=== PATIENT | female | born 2000 ===

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

== ENCOUNTER 2018-09-20 10:36 | Emergency (ER) | payer SELFPAY ==
[2018-09-20 10:47] VITALS: BP 118/66; PULSE 87; RESP 16; TEMP 97.2; O2SAT 97; BMI 19.6
--- NOTE | 2018-09-20 11:43 | ED PDOC ---
HPI: Skin/Bite Injury Time Seen by Provider: 09/20/18 11:01 Chief Complaint (Provider): Rash History Per: Patient History/Exam Limitations: no limitations Onset/Duration Of Symptoms: Other (one month and a half) Additional Complaint(s): 18 years old female with no significant PMHx presents to ER for evaluation of generalized itchiness and rash onset one month and a half ago. Patient reports boyfriend has same symptoms. She denies fever, pain, shortness of breath and throat swelling. PMD: None provided Past Medical History Reviewed: Historical Data, Nursing Documentation, Vital Signs Vital Signs: Last Vital Signs Temp 97.2 F L 09/20/18 10:46 Pulse 87 09/20/18 10:46 Resp 16 09/20/18 10:46 BP 118/66 09/20/18 10:46 Pulse Ox 97 09/20/18 10:46 - Medical History PMH: Depression Denies: Diabetes, Hepatitis, HIV, HTN, Chronic Kidney Disease, Seizures, Sex ually Transmitted Disease - Surgical History Surgical History: No Surg Hx - Family History Family History: States: Unknown Family Hx - Social History Current smoker - smoking cessation education provided: No Alcohol: None Drugs: Denies - Home Medications Home Medications: Ambulatory Orders Medication Instructions Recorded Permethrin 5% [Permethrin 5% Cream] 1 / TP DAILY #1 tube 09/20/18 - Allergies Allergies/Adverse Reactions: Allergies Allergy/AdvReac Type Severity Reaction Status Date / Time apple Allergy ITCHING Verified 03/29/16 19:45 pear Allergy ITCHING Verified 03/29/16 19:45 Review of Systems ROS Statement: Except As Marked, All Systems Reviewed And Found Negative Constitutional: Negative for: Fever ENT: Negative for: Throat Swelling Respiratory: Negative for: Shortness of Breath Skin: Positive for: Rash (generalized) Physical Exam - Reviewed Nursing Documentation Reviewed: Yes Vital Signs Reviewed: Yes - Physical Exam Appears: Positive for: Well, No Acute Distress Head Exam: Positive for: ATRAUMATIC, NORMOCEPHALIC Skin: Positive for: Rash (generalized papular lesions and on bilateral hands between the digits. No erythema, induration or vesicles, ) ENT: Positive for: Normal ENT Inspection. Negative for: Pharyngeal Erythema Respiratory: Positive for: Normal Breath Sounds. Negative for: Respiratory Distress Neurological/Psych: Positive for: Awake, Alert, Oriented (x3) - ECG O2 Sat by Pulse Oximetry: 97 (RA) Pulse Ox Interpretation: Normal Medical Decision Making Medical Decision Making: Time: 1140 Initial impression: scabies Scribe Attestation: Documented by Mary Richardson acting as a scribe for Marta Julio MD. Provider Scribe Attestation: All medical record entries made by the Scribe were at my direction and personally dictated by me. I have reviewed the chart and agree that the record accurately reflects my personal performance of the history, physical exam, medical decision making, and the department course for this patient. I have also personally directed, reviewed, and agree with the discharge instructions and disposition. Disposition - Clinical Impression Clinical Impression: Scabies - Disposition Referrals: [facility] [place] [Outside] Prescriptions: Permethrin 5% [Permethrin 5% Cream] 1 / TP DAILY #1 tube Instructions: Scabies
== END 2018-09-20 12:00 | disposition home or self-care (01) ==
LOC: H.ER 10:36
DX: Z86.59 Personal history of other mental and behavioral disorders (principal); B86 Scabies